=== PATIENT | female | born 1940 | race Caucasian/White ===

== ENCOUNTER 2016-06-15 15:30 | Inpatient (IN) | payer MEDICARE, OTHER ==
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
--- NOTE | ~2016-06-15 | DS ---
Discharge Summary [facility] [address] [place]. [address] NAME: YUNI ADAMSON : 44 STATUS : DIS IN PAT#: [id number] AGE: 75 ADM/REG DATE : 06/18/16 MR#: [id number] REPORT SERV DATE: 06/24/16 DICTATED BY: MELIA SCHUMACHER DATE: 06/21/16 REPORT STATUS : Draft TRANSCRIBED BY: MODL DATE: 06/21/16 ADMISSION DATE: 06/18/2016 DISCHARGE DATE: 06/21/2016 CHIEF COMPLAINT ON ADMISSION: Fever, chills, and right lower extremity pain. DISCHARGING DIAGNOSES: 1. Right lower extremity cellulitis with superficial abscess. 2. Intermittent fever. 3. Metastatic non-small cell lung cancer. 4. History of peripheral artery disease with bilateral iliac stents. 5. History of hypertension. 6. History of anxiety. 7. Mild intermittent confusion. HISTORY OF PRESENT ILLNESS: Please see full H and P by Dr. Reuben Hussein for initial details regarding presentation. HOSPITAL COURSE: 1. Right lower extremity cellulitis with superficial abscess. The patient was seen by Surgery. She had an I and D of the right lower extremity, subsequently placed wound VAC. The cultures have all been negative. She was initially placed on IV antibiotics. During the procedure, it was noted she had a purulent hematoma. Unfortunately, all cultures have been negative, which is difficult to guide further treatment. She was initially on broad-spectrum antibiotics given her fevers, which has been narrowed down to Augmentin. At the time of discharge, she is afebrile for greater than 24 hours. Given the superficial abscess and the improvement with antibiotics, unclear etiology of her intermittent fevers. Chest x-ray was done, which showed some edema, although no evidence of infection. Urinalysis was also done. Procalcitonin was 0.16. So, incentive spirometry was recommended as concerned she may have had some atelectasis given her prolonged stay in bed. This was reviewed with Infectious Disease. We will discharge her on Augmentin for an additional nine doses. 2. Fever. See above. The patient was cultured without any other source of infection, currently afebrile for greater than 24 hours. I have discussed with family at length. 3. Metastatic non-small cell lung cancer. Follow up with Dr. Burciaga as an outpatient. 4. Peripheral artery disease with history of stents. The patient continued on her home regimen. Follow up with her outpatient doctors. No current issues. She had a right lower extremity CT scan with contrast that did not show any evidence of complication. 5. History of hypertension. Her blood pressures have been low. This may be regarding an infection versus other etiology. At this time, she is on half of the dose of verapamil she was on before. This has been discussed with the patient and her daughter. Her need may change if she is an outpatient. She is to be followed closely and titrate medication as needed once she is recovered from her acute illness. 6. Anxiety along with intermittent confusion. I have discussed this with the family at length. She is on amitriptyline, Librium, and trazodone at night. Given her recent illnesses, hospitalization, new diagnosis of cancer, etc., I am concerned that her Discharge Summary [address] [place]. [address] NAME: YUNI ADAMSON ORLIN : 42 STATUS : DIS IN PAT#: [id number] AGE: 75 ADM/REG DATE : 06/18/16 MR#: [id number] REPORT SERV DATE: 06/24/16 DICTATED BY: MELIA SCHUMACHER DATE: 06/21/16 REPORT STATUS : Draft TRANSCRIBED BY: JAVAN DATE: 06/21/16 medication needs may change as her ability to metabolize the medication may be altered. At this point, I will recommend to decrease her dose of trazodone and monitor her closely as an outpatient for any need to titrate these medications to avoid side effects. 7. Right lower extremity pain. We will discharge her with tramadol to help control her pain, which is overall minor. However, she has just been lying in bed here. 8. Chronic hypoxic respiratory failure. The patient already had home oxygen set up through Oncology. She did have some minor wheezing during her hospitalization, will be given a short course of steroid to help with this. Suspect this may be due to some fluid, although given her history of COPD, she was given again a short course of p.o. steroids. PERTINENT CULTURES THIS ADMISSION: All cultures have been negative. DISCHARGE MEDICATIONS: The patient is on omeprazole 20 mg daily, Augmentin for an additional nine doses, chlordiazepoxide/amitriptyline 12.5/5 takes two tabs at bedtime, prednisone 40 mg for two days, verapamil 40 mg p.o. b.i.d., trazodone 75 mg at bedtime, Florastor, tramadol 50 mg q.4 hours p.r.n., Lasix 20 mg every other day, Colace daily, multivitamin. PERTINENT LABS: Prior to discharge, white blood cell count 5.8, hemoglobin 10.8, platelet count of 276. BMP is grossly unremarkable. Last chest x-ray prior to discharge, venous congestion with new interstitial prominence in lungs likely representing edema. OTHER PERTINENT IMAGING: CTA of the chest with impression. 1. No evidence for pulmonary embolism. No thoracic aortic aneurysm or dissection demonstrated. There is some fullness in the pulmonary artery, which may represent some underlying pulmonary hypertension. 2. Large masses in the right lower lobe and left upper lobe with multiple additional pulmonary nodules along with the minor fissure within the left lower lobe and at the right lung apex concerning for metastatic disease. 3. Bilateral paratracheal bulky left hilar lymphadenopathy. 4. Moderate right pleural effusion and trace left pleural effusion. 5. Dense consolidation atelectasis in the posterior basilar right lower lobe with some additional atelectatic changes in the right upper lobe. DISPOSITION: Home with Home Health for wound VAC and home oxygen. Followup will be with Dr. Garvin in the [facility] in one week and Dr. Burciaga for her lung cancer. Time spent on this discharge is greater than 30 minutes. This is discussed at length with the patient and her family. ERMIASK/JAVAN Melia Schumacher MD Discharge Summary [address] [address] NAME: YUNI ADAMSON : 42 STATUS : DIS IN PAT#: [id number] AGE: 75 ADM/REG DATE : 06/18/16 MR#: [id number] REPORT SERV DATE: 06/24/16 DICTATED BY: MELIA SCHUMACHER DATE: 06/21/16 REPORT STATUS : Draft TRANSCRIBED BY: MODL DATE: 06/21/16 / [id number] CC: MD Tristian Herrera M.D.
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
--- NOTE | ~2016-06-15 | CN ---
Consultation Report [facility] [address] [place]. [address] NAME: YUNI ADAMSON : 42 STATUS : ADM Devon PAT#: [id number] AGE: 75 ADM/REG DATE : 06/15/16 MR#: [id number] REPORT SERV DATE: 06/18/16 DICTATED BY: MOSES HERRERA DATE: 06/17/16 REPORT STATUS : Draft TRANSCRIBED BY: MODL DATE: 06/17/16 SURGICAL CONSULTATION DATE OF CONSULTATION: 06/17/2016 HISTORY OF PRESENT ILLNESS: This 75-year-old female presents with a history of fever and chills and right lower extremity pain. She states that she had trauma to her right lower extremity with a chair, and she had a red indurated area on the right lateral lower extremity. It apparently was a superficial abscess. Over the past two weeks, she had progressive pain. She was started on antibiotics and had progressive fever and chills and was admitted to the hospital. She has some mild shortness of breath that is chronic. She was diagnosed with metastatic squamous cell carcinoma of the lung, has been scheduled to begin palliative chemotherapy after improvement of this wound. I was asked to see the patient after she had a bedside procedure on 06/16/2016 by another physician with I and D of the abscess. On exam today, the patient has a right lateral lower extremity 3.5 cm open ulcer with necrotic slough extending into the subcutaneous tissue and muscle with hematoma. There is mild reina-wound erythema, without bulla, crepitance, or lymphangitis. There are no undrained abscesses. PAST MEDICAL HISTORY: As above with a history of a TIA. Chronic bilateral lower extremity venous hypertension. PAST SURGICAL HISTORY: Hysterectomy. ALLERGIES: BACTRIM CAUSES A RASH. SOCIAL HISTORY: The patient has 30 pack year history of smoking. She does not smoke actively. She denies alcohol or illicit drug usage. She lives at home. She has a supportive family. FAMILY HISTORY: Positive for hypertension and diabetes. No history of cancer. REVIEW OF SYSTEMS: No headache, blurred vision, dizziness, chest pain, shortness of breath, cough, dyspnea on exertion, syncope, palpitations, jaundice, or itching. She does have occasional cough. She has right leg swelling and redness. PHYSICAL EXAMINATION: GENERAL: A well-developed female, in no apparent distress. HEENT: Normocephalic and atraumatic. Sclerae anicteric. NECK: Supple. No adenopathy. CARDIOVASCULAR: Regular rate and rhythm without murmur. RESPIRATORY: Clear to auscultation. ABDOMEN: Soft, nondistended, nontender. No masses. BACK: No CVA tenderness. Consultation Report [place] [address] [address] NAME: YUNI ADAMSON : 44 STATUS : ADM Devon PAT#: [id number] AGE: 75 ADM/REG DATE : 06/15/16 MR#: [id number] REPORT SERV DATE: 06/18/16 DICTATED BY: MOSES HERRERA DATE: 06/17/16 REPORT STATUS : Draft TRANSCRIBED BY: JAVNA DATE: 06/17/16 EXTREMITIES: The patient has 1 to 2+ edema of the right lower extremity. She has bilateral lipodermatosclerosis. She has an open right lateral venous ulcer with necrotic slough with foul abscess. LABORATORY DATA: Please see hospital chart. IMAGING: CTA was just completed and is unresulted. ASSESSMENT: 1. Right lower extremity chronic venous ulcer with deep tissue injury. 2. History of chronic bilateral venous hypertension. 3. Stage IV squamous cell carcinoma of the lung, awaiting palliative therapy after wound healing. 4. Altered mental status. PLAN: At this time, I have discussed bedside debridement with the family, and they are in agreement. They are aware of the risks, including bleeding, infection, need for further surgical intervention and nonhealing. They are aware. I recommend a negative pressure wound therapy in conjunction with lower extremity compression. They are in agreement. /JAVAN Moses Herrera M.D. / [id number] CC: Mariza Yoo M.D. [facility]
--- NOTE | ~2016-06-15 | OP ---
Record Of [address] [place]. [address] NAME: YUNI ADAMSON ORLIN : 44 STATUS : ADM IN [facility]#: [id number] AGE: 75 ADM/REG DATE : 06/18/16 MR#: [id number] REPORT SERV DATE: 06/20/16 DICTATED BY: BRANDON LOVE DATE: 06/19/16 REPORT STATUS : Draft TRANSCRIBED BY: MODL DATE: 06/19/16 DATE OF PROCEDURE: 06/15/2016 PREOPERATIVE DIAGNOSIS: Right lower extremity abscess. POSTOPERATIVE DIAGNOSIS: Right lower extremity abscess. PROCEDURE: I and D of the right lower extremity abscess. SURGEON: Brandno Love M.D. RESIDENT SURGEON: Héctor Azul MD. ANESTHESIA: 1% lidocaine. PREPARATION: Betadine. ESTIMATED BLOOD LOSS: Less than 5 mL. DRAINS: None. COMPLICATIONS: None. FINDINGS: The patient had a right lower extremity abscess on the anterolateral portion of the lower leg. When a cruciate incision was made, purulent hematoma was expressed. This was left opened and addressed that appropriately. INDICATIONS FOR PROCEDURE: This is a 75-year-old female, who reportedly hit her right lower extremity on a bar stool two weeks ago and subsequently started having increased induration and purulent-like abscess formation. The patient presented to the emergency department. Surgery was consulted for this right lower extremity abscess. The above procedure was offered to the patient. Risks, benefits, and alternatives were explained. The patient expressed good understanding and wished to proceed forward with the procedure. DESCRIPTION OF PROCEDURE: The patient was kept in her bed. The surgery site was then prepped and draped in a standard fashion. 1% lidocaine was used to anesthetize the area. Cruciate incision was made through the abscess. Purulent hematoma was expressed. The fluid was cultured and sent off. The loculations of the abscess cavity were broken up with blunt dissection manually expressing purulent hematoma-like fluid. Standard sterile dressing was then applied. Sterile drapes were then broken down. DICTATED BY: MD LISSY Harper/JAVAN Record Of [address] [place]. [address] NAME: YUNI ADAMSON : 44 STATUS : ADM IN PAT#: [id number] AGE: 75 ADM/REG DATE : 06/18/16 MR#: [id number] REPORT SERV DATE: 06/20/16 DICTATED BY: BRANDON LOVE DATE: 06/19/16 REPORT STATUS : Draft TRANSCRIBED BY: MODL DATE: 06/19/16 Brandon Love M.D. / [id number] CC: Mariza Doyle M.D.
[2016-06-15 13:56] LABS: BASOPHILS 0.5 %; BASOPHILS ABSOLUTE 0.04 10/3/uL (0.0-0.16); EOSINOPHILS 3.3 %; EOSINOPHILS ABSOLUTE 0.27 10/3/uL (0.0-0.53); ER CBC TAT 0 Hrs 10 Mins; IMMATURE GRANULOCYTES 0.1 %; IMMATURE GRANULOCYTES ABSOLUTE 0.01 10/3/uL (0.0-0.11); LYMPHOCYTES 14.7 %; LYMPHOCYTES ABSOLUTE 1.21 10/3/uL (0.67-4.30); MEAN CORPUSCULAR HEMOGLOB 32.1 pg (26.0-34.0); MEAN PLATELET VOLUME 9.2 fL (9.2-13.0); MONOCYTES 11.3 %; MONOCYTES ABSOLUTE 0.93 10/3/uL (0.21-1.20); NEUTROPHILS 70.1 %; NEUTROPHILS ABSOLUTE 5.78 10/3/uL (2.02-8.40); PLATELET COUNT 271 10/3/uL (150-400); RBC DISTRIBUTION WIDTH 13.3 % (12.0-16.0); RED CELL COUNT 4.05 10/6/uL (4.0-5.6); WHITE BLOOD CELLS 8.2 10/3/uL (4.5-10.5)
[2016-06-15 13:57] LABS: HEMATOCRIT 38.5 % (36.0-48.0); MEAN CORPUSCULAR VOLUME 95.1 fL (80-100)
[2016-06-15 13:58] LABS: MANUAL DIFF NO %; MEAN CORPUS HGB CONC 33.8 g/dL (32.0-36.0)
[2016-06-15 14:00] LABS: ASCORBIC ACID (UR NOT ORDER) 40 (NEG); BILIRUBIN, URINE NEGATIVE (NEG); ER URINALYSIS TAT 0 Hrs 14 Mins; KETONE, URINE NEGATIVE (NEG); LEUKOCYTE ESTERASE(NOT OR NEG (NEG); NITRITE (URINE) NEG (NEG); WBC (NOT ORDERED) (RFLEX) < 1 (0-5)
[2016-06-15 14:11] LABS: A/G RATIO 0.6 (0.7-1.9); ALBUMIN 2.9 G/DL (3.5-5.0); BUN (BLOOD UREA NITROGEN) 11 MG/DL (6-23); CALCIUM, SERUM 9.2 MG/DL (8.5-10.4); CHLORIDE, SERUM 101 MMOL/L (96-112); CO2 (CARBON DIOXIDE) 29 MMOL/L (24-34); CREATININE 0.86 MG/DL (0.55-1.02); GFR AFRICAN AMERICAN 78 ML/MIN (>=60); GFR NON AFRICAN AMERICAN 67 ML/MIN (>=60); GLOBULIN 4.6 G/DL (2.5-4.1); GLUCOSE, SERUM 103 MG/DL (60-99); POTASSIUM, SERUM 3.8 MMOL/L (3.5-5.3); SGOT(AST) 14 U/L (5-40); SGPT(ALT) 18 U/L (5-65); SODIUM, SERUM 139 MMOL/L (135-148); TOTAL PROTEIN 7.5 G/DL (6.0-8.5)
[2016-06-15 14:12] LABS: ALKALINE PHOSPHATASE 118 U/L (45-117); TOTAL BILIRUBIN 0.4 MG/DL (0-1.2)
[~2016-06-15 15:30] MED LIST: AMITRIP PO; CALAN80 MG PO; CDP PO; CLEOCIN300 MG PO; L20 PO; PRILO PO; THERGRANM PO; TRAZODONE150 MG PO
[2016-06-15 21:09] LABS: BASOPHILS 0.5 %; BASOPHILS ABSOLUTE 0.04 10/3/uL (0.0-0.16); EOSINOPHILS 5.9 %; EOSINOPHILS ABSOLUTE 0.45 10/3/uL (0.0-0.53); HEMOGLOBIN 11.5 g/dL (12.0-16.0); IMMATURE GRANULOCYTES 0.1 %; IMMATURE GRANULOCYTES ABSOLUTE 0.01 10/3/uL (0.0-0.11); LYMPHOCYTES 13.7 %; LYMPHOCYTES ABSOLUTE 1.05 10/3/uL (0.67-4.30); MEAN CORPUS HGB CONC 32.9 g/dL (32.0-36.0); MEAN CORPUSCULAR HEMOGLOB 31.3 pg (26.0-34.0); MEAN CORPUSCULAR VOLUME 95.4 fL (80-100); MEAN PLATELET VOLUME 9.5 fL (9.2-13.0); MONOCYTES 12.8 %; MONOCYTES ABSOLUTE 0.98 10/3/uL (0.21-1.20); NEUTROPHILS ABSOLUTE 5.15 10/3/uL (2.02-8.40); PLATELET COUNT 280 10/3/uL (150-400); RBC DISTRIBUTION WIDTH 13.4 % (12.0-16.0); RED CELL COUNT 3.67 10/6/uL (4.0-5.6); WHITE BLOOD CELLS 7.7 10/3/uL (4.5-10.5)
[2016-06-15 21:19] LABS: MANUAL DIFF NO %
[2016-06-15 21:33] LABS: B NATRIURETIC PEPTIDE (BNP) 38.7 PG/ML (< 100.0)
[2016-06-15 21:34] LABS: A/G RATIO 0.6 (0.7-1.9); ALBUMIN 2.5 G/DL (3.5-5.0); ALKALINE PHOSPHATASE 108 U/L (45-117); BUN (BLOOD UREA NITROGEN) 9 MG/DL (6-23); CHLORIDE, SERUM 106 MMOL/L (96-112); CO2 (CARBON DIOXIDE) 28 MMOL/L (24-34); GFR AFRICAN AMERICAN 74 ML/MIN (>=60); GFR NON AFRICAN AMERICAN 63 ML/MIN (>=60); GLOBULIN 4.2 G/DL (2.5-4.1); GLUCOSE, SERUM 113 MG/DL (60-99); POTASSIUM, SERUM 3.8 MMOL/L (3.5-5.3); SGOT(AST) 11 U/L (5-40); SGPT(ALT) 13 U/L (5-65); SODIUM, SERUM 142 MMOL/L (135-148); TOTAL BILIRUBIN 0.2 MG/DL (0-1.2); TOTAL PROTEIN 6.7 G/DL (6.0-8.5); TROPONIN I <0.02 NG/ML (<0.05); ULTRASENSITIVE TSH 0.312 MCIU/ML (0.358-3.740)
[2016-06-15 21:35] LABS: CALCIUM, SERUM 8.1 MG/DL (8.5-10.4)
[2016-06-15 22:08] LABS: PROCALCITONIN <0.05 ng/mL (<0.5)
[2016-06-16 05:10] LABS: BASOPHILS 0.4 %; BASOPHILS ABSOLUTE 0.03 10/3/uL (0.0-0.16); EOSINOPHILS 5.4 %; EOSINOPHILS ABSOLUTE 0.37 10/3/uL (0.0-0.53); HEMATOCRIT 34.8 % (36.0-48.0); HEMOGLOBIN 11.6 g/dL (12.0-16.0); IMMATURE GRANULOCYTES 0.1 %; IMMATURE GRANULOCYTES ABSOLUTE 0.01 10/3/uL (0.0-0.11); LYMPHOCYTES 23.2 %; MANUAL DIFF NO %; MEAN CORPUS HGB CONC 33.3 g/dL (32.0-36.0); MEAN CORPUSCULAR HEMOGLOB 31.8 pg (26.0-34.0); MEAN CORPUSCULAR VOLUME 95.3 fL (80-100); MEAN PLATELET VOLUME 8.8 fL (9.2-13.0); MONOCYTES 10.9 %; MONOCYTES ABSOLUTE 0.75 10/3/uL (0.21-1.20); NEUTROPHILS ABSOLUTE 4.15 10/3/uL (2.02-8.40); PLATELET COUNT 259 10/3/uL (150-400); RBC DISTRIBUTION WIDTH 13.3 % (12.0-16.0); RED CELL COUNT 3.65 10/6/uL (4.0-5.6); WHITE BLOOD CELLS 6.9 10/3/uL (4.5-10.5)
[2016-06-16 05:23] LABS: BUN (BLOOD UREA NITROGEN) 9 MG/DL (6-23); CALCIUM, SERUM 8.5 MG/DL (8.5-10.4); CHLORIDE, SERUM 105 MMOL/L (96-112); CO2 (CARBON DIOXIDE) 29 MMOL/L (24-34); CREATININE 0.82 MG/DL (0.55-1.02); GFR AFRICAN AMERICAN 82 ML/MIN (>=60); GFR NON AFRICAN AMERICAN 71 ML/MIN (>=60); GLUCOSE, SERUM 92 MG/DL (60-99); PHOSPHORUS, SERUM 3.7 MG/DL (2.5-4.5); SODIUM, SERUM 141 MMOL/L (135-148)
[2016-06-16] MEDS ORDERED: FLORASTOR250 MG PO (12:26)
[2016-06-16] MEDS ORDERED: OMNICEF300 PO (12:28)
[2016-06-16] MEDS ORDERED: NORCO1 TA1 PO (12:29)
[2016-06-16] MEDS ORDERED: DSS PO (12:30)
[2016-06-17 05:55] LABS: BASOPHILS 0.4 %; BASOPHILS ABSOLUTE 0.04 10/3/uL (0.0-0.16); EOSINOPHILS 1.7 %; EOSINOPHILS ABSOLUTE 0.17 10/3/uL (0.0-0.53); HEMATOCRIT 34.2 % (36.0-48.0); HEMOGLOBIN 11.3 g/dL (12.0-16.0); IMMATURE GRANULOCYTES 0.3 %; IMMATURE GRANULOCYTES ABSOLUTE 0.03 10/3/uL (0.0-0.11); LYMPHOCYTES 13.8 %; LYMPHOCYTES ABSOLUTE 1.36 10/3/uL (0.67-4.30); MEAN CORPUSCULAR HEMOGLOB 31.7 pg (26.0-34.0); MEAN CORPUSCULAR VOLUME 95.8 fL (80-100); MEAN PLATELET VOLUME 9.3 fL (9.2-13.0); MONOCYTES 14.1 %; MONOCYTES ABSOLUTE 1.39 10/3/uL (0.21-1.20); NEUTROPHILS 69.7 %; NEUTROPHILS ABSOLUTE 6.84 10/3/uL (2.02-8.40); PLATELET COUNT 234 10/3/uL (150-400); RBC DISTRIBUTION WIDTH 13.1 % (12.0-16.0); RED CELL COUNT 3.57 10/6/uL (4.0-5.6)
[2016-06-17 06:08] LABS: WHITE BLOOD CELLS 9.8 10/3/uL (4.5-10.5)
[2016-06-17 06:09] LABS: MANUAL DIFF NO %
[2016-06-17 06:11] LABS: ALBUMIN 2.2 G/DL (3.5-5.0); DIRECT BILIRUBIN 0.2 MG/DL (0.0-0.4); INDIRECT BILIRUBIN(NOT ORDER) 0.6 MG/DL (0.1-0.9); TOTAL BILIRUBIN 0.8 MG/DL (0-1.2); TOTAL PROTEIN 6.1 G/DL (6.0-8.5)
[2016-06-17 14:32] LABS: INFLUENZA A SCREEN NEGATIVE (NEGATIVE); INFLUENZA B SCREEN NEGATIVE (NEGATIVE)
[2016-06-17 14:45] LABS: BUN (BLOOD UREA NITROGEN) 6 MG/DL (6-23); CALCIUM, SERUM 8.1 MG/DL (8.5-10.4); CHLORIDE, SERUM 101 MMOL/L (96-112); CO2 (CARBON DIOXIDE) 29 MMOL/L (24-34); CREATININE 0.78 MG/DL (0.55-1.02); GFR AFRICAN AMERICAN 87 ML/MIN (>=60); GFR NON AFRICAN AMERICAN 75 ML/MIN (>=60); GLUCOSE, SERUM 109 MG/DL (60-99); POTASSIUM, SERUM 3.8 MMOL/L (3.5-5.3); SODIUM, SERUM 137 MMOL/L (135-148)
[2016-06-18 04:42] LABS: BASOPHILS 0.3 %; BASOPHILS ABSOLUTE 0.03 10/3/uL (0.0-0.16); EOSINOPHILS 2.2 %; EOSINOPHILS ABSOLUTE 0.25 10/3/uL (0.0-0.53); HEMATOCRIT 32.6 % (36.0-48.0); HEMOGLOBIN 10.7 g/dL (12.0-16.0); IMMATURE GRANULOCYTES 0.2 %; IMMATURE GRANULOCYTES ABSOLUTE 0.02 10/3/uL (0.0-0.11); LYMPHOCYTES 8.8 %; MEAN CORPUS HGB CONC 32.8 g/dL (32.0-36.0); MEAN CORPUSCULAR HEMOGLOB 31.8 pg (26.0-34.0); MEAN CORPUSCULAR VOLUME 96.7 fL (80-100); MEAN PLATELET VOLUME 9.2 fL (9.2-13.0); MONOCYTES 14.4 %; MONOCYTES ABSOLUTE 1.63 10/3/uL (0.21-1.20); NEUTROPHILS 74.1 %; NEUTROPHILS ABSOLUTE 8.42 10/3/uL (2.02-8.40); PLATELET COUNT 207 10/3/uL (150-400); RBC DISTRIBUTION WIDTH 13.2 % (12.0-16.0); RED CELL COUNT 3.37 10/6/uL (4.0-5.6); WHITE BLOOD CELLS 11.4 10/3/uL (4.5-10.5)
[2016-06-18 04:43] LABS: MANUAL DIFF NO %
[2016-06-18 04:49] LABS: BUN (BLOOD UREA NITROGEN) 7 MG/DL (6-23); CALCIUM, SERUM 8.5 MG/DL (8.5-10.4); CHLORIDE, SERUM 101 MMOL/L (96-112); CO2 (CARBON DIOXIDE) 30 MMOL/L (24-34); CREATININE 0.78 MG/DL (0.55-1.02); GFR AFRICAN AMERICAN 87 ML/MIN (>=60); GFR NON AFRICAN AMERICAN 75 ML/MIN (>=60); GLUCOSE, SERUM 97 MG/DL (60-99); POTASSIUM, SERUM 3.7 MMOL/L (3.5-5.3); SODIUM, SERUM 138 MMOL/L (135-148)
[2016-06-19 03:44] LABS: HEMATOCRIT 33.4 % (36.0-48.0); HEMOGLOBIN 10.8 g/dL (12.0-16.0); MEAN CORPUS HGB CONC 32.3 g/dL (32.0-36.0); MEAN CORPUSCULAR HEMOGLOB 31.4 pg (26.0-34.0); MEAN CORPUSCULAR VOLUME 97.1 fL (80-100); MEAN PLATELET VOLUME 9.4 fL (9.2-13.0); PLATELET COUNT 205 10/3/uL (150-400); RBC DISTRIBUTION WIDTH 13.5 % (12.0-16.0); RED CELL COUNT 3.44 10/6/uL (4.0-5.6); WHITE BLOOD CELLS 8.7 10/3/uL (4.5-10.5)
[2016-06-19 03:45] LABS: MANUAL DIFF YES %
[2016-06-19 03:58] LABS: BUN (BLOOD UREA NITROGEN) 7 MG/DL (6-23); CALCIUM, SERUM 8.6 MG/DL (8.5-10.4); CHLORIDE, SERUM 102 MMOL/L (96-112); CO2 (CARBON DIOXIDE) 31 MMOL/L (24-34); CREATININE 0.85 MG/DL (0.55-1.02); GFR AFRICAN AMERICAN 79 ML/MIN (>=60); GFR NON AFRICAN AMERICAN 68 ML/MIN (>=60); GLUCOSE, SERUM 93 MG/DL (60-99); POTASSIUM, SERUM 4.2 MMOL/L (3.5-5.3); SODIUM, SERUM 139 MMOL/L (135-148)
[2016-06-19 04:04] LABS: EOSINOPHILS 2 %; EOSINOPHILS ABSOLUTE (CALC) 0.17 10/3/uL (0.0-0.53); LYMPHOCYTES 10 %; LYMPHOCYTES ABSOLUTE (CALC) 0.87 10/3/uL (0.67-4.30); MONOCYTES 9 %; MONOCYTES ABSOLUTE (CALC) 0.78 10/3/uL (0.21-1.20); NEUTROPHILS ABSOLUTE (CALC) 6.87 10/3/uL (2.02-8.40); SEGMENTED NEUTROPHIL (0) 79 %; TOTAL NUCLEATED CELLS 100
[2016-06-19 04:05] LABS: PLATELET ESTIMATE ADQ (ADEQUATE); RBC MORPHOLOGY NORM (NORMAL)
[2016-06-20 12:05] LABS: BASOPHILS 0.4 %; BASOPHILS ABSOLUTE 0.03 10/3/uL (0.0-0.16); EOSINOPHILS 3.8 %; EOSINOPHILS ABSOLUTE 0.28 10/3/uL (0.0-0.53); HEMATOCRIT 33.2 % (36.0-48.0); HEMOGLOBIN 10.5 g/dL (12.0-16.0); IMMATURE GRANULOCYTES 0.1 %; IMMATURE GRANULOCYTES ABSOLUTE 0.01 10/3/uL (0.0-0.11); LYMPHOCYTES 11.7 %; LYMPHOCYTES ABSOLUTE 0.87 10/3/uL (0.67-4.30); MEAN CORPUS HGB CONC 31.6 g/dL (32.0-36.0); MEAN CORPUSCULAR HEMOGLOB 31.3 pg (26.0-34.0); MEAN CORPUSCULAR VOLUME 99.1 fL (80-100); MONOCYTES 16.2 %; NEUTROPHILS 67.8 %; NEUTROPHILS ABSOLUTE 5.03 10/3/uL (2.02-8.40); RBC DISTRIBUTION WIDTH 13.4 % (12.0-16.0); RED CELL COUNT 3.35 10/6/uL (4.0-5.6); WHITE BLOOD CELLS 7.4 10/3/uL (4.5-10.5)
[2016-06-20 12:11] LABS: MANUAL DIFF NO %; PLATELET COUNT 267 10/3/uL (150-400)
[2016-06-20 16:58] LABS: ASCORBIC ACID (UR NOT ORDER) NEG (NEG); BILIRUBIN, URINE NEGATIVE (NEG); KETONE, URINE NEGATIVE (NEG); LEUKOCYTE ESTERASE(NOT OR NEG (NEG); WBC (NOT ORDERED) (RFLEX) 1 (0-5)
[2016-06-21 05:10] LABS: BASOPHILS 0.2 %; BASOPHILS ABSOLUTE 0.01 10/3/uL (0.0-0.16); EOSINOPHILS 0 %; HEMATOCRIT 32.7 % (36.0-48.0); HEMOGLOBIN 10.8 g/dL (12.0-16.0); IMMATURE GRANULOCYTES 0.3 %; IMMATURE GRANULOCYTES ABSOLUTE 0.02 10/3/uL (0.0-0.11); LYMPHOCYTES 6.3 %; LYMPHOCYTES ABSOLUTE 0.37 10/3/uL (0.67-4.30); MEAN CORPUSCULAR HEMOGLOB 32.1 pg (26.0-34.0); MEAN CORPUSCULAR VOLUME 97.3 fL (80-100); MONOCYTES 14.2 %; MONOCYTES ABSOLUTE 0.83 10/3/uL (0.21-1.20); PLATELET COUNT 276 10/3/uL (150-400); RBC DISTRIBUTION WIDTH 13.1 % (12.0-16.0); RED CELL COUNT 3.36 10/6/uL (4.0-5.6); WHITE BLOOD CELLS 5.8 10/3/uL (4.5-10.5)
[2016-06-21 05:15] LABS: MANUAL DIFF NO %
[2016-06-21 05:18] LABS: A/G RATIO 0.4 (0.7-1.9); ALKALINE PHOSPHATASE 87 U/L (45-117); BUN (BLOOD UREA NITROGEN) 8 MG/DL (6-23); CALCIUM, SERUM 8.8 MG/DL (8.5-10.4); CHLORIDE, SERUM 99 MMOL/L (96-112); CO2 (CARBON DIOXIDE) 31 MMOL/L (24-34); CREATININE 0.58 MG/DL (0.55-1.02); GFR AFRICAN AMERICAN 106 ML/MIN (>=60); GFR NON AFRICAN AMERICAN 91 ML/MIN (>=60); GLOBULIN 4.5 G/DL (2.5-4.1); GLUCOSE, SERUM 109 MG/DL (60-99); POTASSIUM, SERUM 4.6 MMOL/L (3.5-5.3); SGOT(AST) 13 U/L (5-40); SGPT(ALT) 13 U/L (5-65); SODIUM, SERUM 138 MMOL/L (135-148); TOTAL BILIRUBIN 0.4 MG/DL (0-1.2); TOTAL PROTEIN 6.5 G/DL (6.0-8.5)
[2016-06-21] MEDS ORDERED: AUG875 PO (10:46)
[2016-06-21] MEDS ORDERED: P20 PO (10:47)
[2016-06-21] MEDS ORDERED: ULTRAM50 PO (10:48)
[2016-06-21] MEDS ORDERED: T PO (11:05)
[2016-06-21] MEDS ORDERED: CALAN40 MG PO (11:05)
== END 2016-06-21 14:49 | disposition home health service (06) | DRG 579 ==
LOC: ER 15:30 → 4SO 15:56 → CDU1 16:05 → CDU2 23:44 → 4EA 06-16 18:32
PROVIDERS: Emergency Medicine; Internal Medicine; Nurse Practitioner Family
PROC: 0J9N0ZZ Drainage of Right Lower Leg Subcutaneous Tissue and Fascia, Open Approach (ICD-10-PCS; principal; 2016-06-15)
DX: L03.115 Cellulitis of right lower limb (principal); G92 Toxic encephalopathy; C34.90 Malignant neoplasm of unspecified part of unspecified bronchus or lung; I73.9 Peripheral vascular disease, unspecified
CPT/HCPCS: 70450; 71010; 71275; 73701-RT; 80048; 80053; 80076; 81001; 82140; 82962; 83605; 83615; 83735; 83880; 84100; 84145; 84443; 84484; 85025; 87040; 87070; 87205; 87641; 87804; 93005; 94640; 96374; 99285; A9270-GY; J0690; J0692; J1170; J1940; J2405; J3370; Q9967

== ENCOUNTER 2016-06-24 20:04 | Inpatient (IN) | payer MEDICARE, OTHER ==
--- NOTE | ~2016-06-24 | DS ---
Discharge Summary [facility] [address] [facility] [place]. [address] NAME: YUNI ADAMSON : 44 STATUS : DIS IN PAT#: [id number] AGE: 75 ADM/REG DATE : 06/25/16 MR#: [id number] REPORT SERV DATE: 06/29/16 DICTATED BY: MAYRA ERWIN II DATE: 06/28/16 REPORT STATUS : Draft TRANSCRIBED BY: MODL DATE: 06/28/16 ADMISSION DATE: 06/25/2016 DISCHARGE DATE: 06/28/2016 DISCHARGE DIAGNOSES: 1. Acute exacerbation of chronic obstructive pulmonary disease. 2. Acute on chronic hypoxic respiratory failure. 3. Questionable pulmonary embolism. 4. Acute atrial fibrillation. 5. Right lower extremity wound with wound VAC. 6. Non-small cell lung carcinoma followed by Dr. Burciaga. 7. Generalized debility. 8. Acute metabolic encephalopathy. CONSULTS: Dr. Hill with Oncology. BRIEF HISTORY OF PRESENT ILLNESS: The patient is a 75-year-old female with the above history, who presented to [facility] due to shortness of breath, fevers, and altered mental status. For detailed history and physical examination, please see Dr. Lan's note from 06/25/2016. HOSPITAL COURSE: On admission, the patient had a CTA which was initially read as having acute pulmonary embolus in the left lower lobe segmental branch of the pulmonary artery and right lower lobe pulmonary artery; however, this was later read by Dr. Barney as no evidence of PE. Manifestations of multiple pulmonary metastases. There was a large right effusion. The preliminary report describing embolus in the left lower segment; however, he says this is a defect in the image and appears to be somewhat eccentric small and may be suggests and may represent some chronic old PE. The PE in the right lower lobe is reported as unlikely a true finding. Lower extremity Dopplers were negative for clots. Given the patient also had acute AFib, the dispute about anticoagulation was moot and she was started on Coumadin given her 100 dollar co-pay for Eliquis. Otherwise, she continues to improve. She was placed on prednisone and nebulizers for COPD. Currently, she is on her chronic supplemental dose of 2 L by nasal cannula. Otherwise, she has a wound VAC on her right lower extremity wound which appears to be healing. Dr. Hill recommended follow with Dr. Burciaga after she finishes rehabilitation at [facility] for which she will be discharged today. DISCHARGE MEDICATIONS: 1. Amitriptyline/chlordiazepoxide two tablets p.o. at bedtime. 2. Multivitamin without minerals. 3. Prilosec 20 mg p.o. daily. 4. Trazodone 75 mg p.o. at bedtime. 5. Verapamil 40 mg p.o. b.i.d. 6. Coumadin 5 mg p.o. every 1800. 7. Tylenol 650 mg p.o. every six hours p.r.n. 8. Lasix 20 mg p.o. every 48 hours. 9. Ultram 50 mg p.o. every four hours p.r.n. Discharge Summary [address] [address] NAME: YUNI ADAMSON : 44 STATUS : DIS IN PAT#: [id number] AGE: 75 ADM/REG DATE : 06/25/16 MR#: [id number] REPORT SERV DATE: 06/29/16 DICTATED BY: MAYRA ERWIN II DATE: 06/28/16 REPORT STATUS : Draft TRANSCRIBED BY: JAVAN DATE: 06/28/16 10.Albuterol HFA two puffs every four hours p.r.n. shortness of breath or wheezing. DISCHARGE INSTRUCTIONS: As per above, the patient was discharged to [facility] and follow up with Dr. Burciaga after rehab. LAMIN/JAVAN Mayra Erwin II, MD / [id number] CC: MD Tristian Gagnon II, M.D.
--- NOTE | ~2016-06-24 | HP ---
History And Physical [id number] [place]. [address] NAME: YUNI KENNY : 44 STATUS : REG ER PAT#: [id number] AGE: 75 ADM/REG DATE : 06/24/16 MR#: [id number] REPORT SERV DATE: 06/25/16 DICTATED BY: MAYRA STANTON DATE: 06/25/16 REPORT STATUS : Draft TRANSCRIBED BY: MODL DATE: 06/25/16 DATE OF ADMISSION: 06/24/2016 POINT OF ENTRY: [facility] Emergency Department. PRIMARY CARE PHYSICIAN: Tristian Allen M.D. PRIMARY ONCOLOGIST: Ryne Burciaga MD. PRIMARY WOUND SURGEON: Moses Garvin M.D. CHIEF COMPLAINT: Fevers, altered mental status, and weakness. HISTORY OF PRESENT ILLNESS: Ms. Kenny is a 75-year-old female with a history of stage IV non-small cell lung cancer as well as osteoarthritis, COPD on 2 L by nasal cannula as well as peripheral arterial disease, peripheral vascular disease, who presents to the emergency room today with reports of persistent confusion as well as weakness and altered mental status. The patient was recently admitted to the Hospitalist Service from June 18 through June 21 for right lower extremity cellulitis with superficial abscess status post incision and drainage requiring wound VAC placement. During her hospital stay, she had some immune fevers, which alternative source of infection was unable to be determined. Family also reports that during her hospital stay, she started to develop confusion and this was still present at the time of discharge on June 21. She was discharged on a course of antibiotics to complete her treatment for her right lower extremity cellulitis and was to follow up with Dr. Garvin in clinic on Friday of this week. Daughter states that since her discharge, her confusion has remained persistent. She denies any obvious visual or auditory hallucinations. The patient states that she is disoriented and does not provide any reliable history. Daughter also states that she has had very poor oral intake of primarily food, but also liquids. She noted a fever of 100.8 degrees Fahrenheit today prompting her presentation to the emergency department. Home health came to see the patient today and was very concerned that the patient had pneumonia and recommended that she also be evaluated in the emergency department. The patient states that she has had some slight worsening of her shortness of breath. She denies any chest pain. Denies any pain anywhere else. Has no other complaints at this time, but does agree with her daughter's assessment that she is confused. Initial evaluation in the emergency department for a chest x-ray that shows bilateral pulmonary masses with her largely unchanged as well as bilateral pleural effusions also largely unchanged. CTA of the chest was undertaken, which showed left lower lobe as well as right lower lobe segmental pulmonary embolisms without any evidence of focal consolidation or infiltrate concerning for pneumonia. EKG did show some atrial fibrillation with RVR, but now the patient appears to be in normal sinus rhythm. Labs otherwise were unremarkable. CT History And Physical [address] [address] NAME: YUNI KENNY : 44 STATUS : REG ER PAT#: [id number] AGE: 75 ADM/REG DATE : 06/24/16 MR#: [id number] REPORT SERV DATE: 06/25/16 DICTATED BY: MAYRA STANTON DATE: 06/25/16 REPORT STATUS : Draft TRANSCRIBED BY: JAVAN DATE: 06/25/16 scan of the brain was unremarkable. She was subsequently admitted to the Hospital Service for further evaluation and management. REVIEW OF SYSTEMS: Comprehensive review of systems otherwise negative unless listed in history of present illness. PAST MEDICAL HISTORY: 1. Stage IV non-small cell lung cancer. 2. Peripheral arterial disease and peripheral vascular disease, status post bilateral iliac stenting. 3. Gastroesophageal reflux disease. 4. Osteoarthritis. 5. COPD on 2 L by nasal cannula. PAST SURGICAL HISTORY: 1. Abdominal hysterectomy. 2. Right shoulder surgery. 3. Right total knee. 4. Bilateral iliac stents. 5. Bladder repair surgery. 6. Rectocele. ALLERGIES: CODEINE, FENTANYL, AND BACTRIM. HOME MEDICATIONS: 1. Tylenol 650 mg every six hours p.r.n. 2. Augmentin 825 mg b.i.d. 3. Amitriptyline with chlordiazepoxide two tablets at bedtime. 4. Lasix 20 mg every four hours. 5. Multivitamin tablet daily. 6. Omeprazole 20 mg daily. 7. Prednisone 40 mg daily. 8. Tramadol 50 mg every four hours. 9. Trazodone 75 mg at bedtime. 10.Verapamil 40 mg b.i.d. SOCIAL HISTORY: She is a former smoker, has about a [id number] smoking history. Denies any alcohol or illicits. Lives with her daughter who is at bedside. FAMILY MEDICAL HISTORY: Hypertension. LABS AND IMAGIN. White count 6.8, hemoglobin is 14.0, hematocrit is 41.5, platelet count 387. 2. Sodium is 136, potassium 3.7, chloride 93, carbon dioxide 31, BUN 8, creatinine 0.7, glucose is 94, calcium is 8.9, protein is 8.1, albumin 2.7, bili is 0.4, ALT 23, AST 21, alk phos is 95. History And Physical [address] [address] NAME: YUNI KENNY : 44 STATUS : REG ER PAT#: [id number] AGE: 75 ADM/REG DATE : 06/24/16 MR#: [id number] REPORT SERV DATE: 06/25/16 DICTATED BY: MAYRA STANTON DATE: 06/25/16 REPORT STATUS : Draft TRANSCRIBED BY: JAVAN DATE: 06/25/16 3. Lactic acid 0.7. 4. Urinalysis: Specific gravity is 1.015, no evidence of any infection. 5. Chest x-ray per my review shows bilateral pulmonary masses as well as a right greater than left pleural effusions, largely unchanged compared to prior chest x-ray. 6. EKG per review shows atrial fibrillation with RVR. No evidence of any acute ischemia or infarction. 7. CT of the chest shows left lower lobe segmental and right lower lobe pulmonary arterial or pulmonary embolisms as well as multiple pulmonary masses as well as a moderate right- sided pleural effusion. PHYSICAL EXAMINATION: VITAL SIGNS: Temperature is 98.9 degrees Fahrenheit, pulse is 121, respirations 22, satting 95% on 2 L of nasal cannula, blood pressure 120/93. GENERAL: The patient is awake, alert and in no acute distress. Resting comfortably. She is a chronically ill-appearing, elderly female in no acute distress. Daughter is at bedside. HEENT: Atraumatic and normocephalic. Slightly dry mucous membranes. Pupils are equal, round, reactive to light and accommodation. Extraocular eye movements intact. No scleral icterus. NECK: No jugular venous distention. No carotid bruits. CARDIAC: Regular rate and rhythm. No murmurs, rubs, or gallops. Normal S1, S2. LUNGS: On oxygen, but in no respiratory distress. Does have some diffuse inspiratory wheezes in all lung [place], but with some decreased breath sounds right greater than left lung base, but no rhonchi or crackles appreciated. ABDOMEN: Soft, nontender, nondistended. Good bowel sounds. No rebound, guarding, or rigidity. EXTREMITIES: Warm and perfused. No cyanosis, clubbing, or edema. She does have a wound VAC in place over the right lower extremity on the lateral side. SKIN: Warm and dry except for noted above. PSYCHIATRIC: Affect is appropriate. NEUROLOGIC: Alert and oriented x3. She is able to tell me the name of daughter who is at bedside. Her birthday as well as who is the President, but still states she is confused. Cranial nerves II through XII are grossly intact. Speech is normal. Gait was not assessed. ASSESSMENT AND PLAN: Ms. Kenny is a 75-year-old female, brought to the emergency room today for reports of persistent confusion as well as fevers and weakness and found to have evidence of acute bilateral pulmonary embolism as well as acute chronic obstructive pulmonary disease exacerbation. PROBLEM LIST: 1. Acute bilateral pulmonary embolisms. 2. Acute COPD exacerbation. 3. Paroxysmal atrial fibrillation. 4. Stage IV non-small cell lung cancer. 5. Encephalopathy. 6. Right lower extremity venous ulcer. History And Physical [address] [address] NAME: YUNI KENNY : 44 STATUS : REG ER PAT#: [id number] AGE: 75 ADM/REG DATE : 06/24/16 MR#: [id number] REPORT SERV DATE: 06/25/16 DICTATED BY: MAYRA STANTON DATE: 06/25/16 REPORT STATUS : Draft TRANSCRIBED BY: MODYuri DATE: 06/25/16 PLAN: 1. Acute bilateral pulmonary embolisms. We will place the patient on IV heparin infusion. Checking troponin as well as echocardiogram to evaluate for any RV strain. I suspect that the patient's major risk factor is her metastatic lung cancer as well as recent hospitalization for her right lower extremity venous ulcer. 2. Acute COPD exacerbation. Place the patient on frequent bronchodilators, antibiotics as well as low-dose prednisone. Given concern for encephalopathy and its potential contribution, she is on her baseline oxygen saturation. 3. Encephalopathy. Family is concerned that this started during her previous hospitalization, suggestive of possible delirium. We will attempt to limit her sedating medications first by holding her amitriptyline. We will place the patient on low-dose prednisone for acute COPD exacerbation as well as try to limit any sedating pain medications. A CT scan of the brain was unremarkable as was the urinalysis. We will check ammonia level, thyroid function studies as well as vitamin as well as an ABG given history of COPD. 4. Dehydration. Provide IV fluid hydration. 5. Right lower extremity venous ulcer. Continue wound VAC care. She will be placed on continue antibiotics for this as well as her acute COPD exacerbation. We will consult Dr. Garvin for assistance and management with a wound VAC. 6. Metastatic lung cancer per Oncology. 7. DVT prophylaxis. The patient is to be on therapeutic anticoagulation. CODE STATUS: The patient wished to be full code. JCB/MODL Mayra Stanton MD / [id number] CC: Tristian Allen M.D. MD Moses Hannon M.D.
[~2016-06-24 20:04] MED LIST changes: +AUG875 PO; +CALAN40 MG PO; +DSS PO; +FLORASTOR250 MG PO; +NORCO1 TA1 PO; +OMNICEF300 PO; +P20 PO; +T PO; +ULTRAM50 PO
[2016-06-24 20:49] LABS: BASOPHILS 0.3 %; BASOPHILS ABSOLUTE 0.02 10/3/uL (0.0-0.16); EOSINOPHILS 0.3 %; EOSINOPHILS ABSOLUTE 0.02 10/3/uL (0.0-0.53); ER CBC TAT 0 Hrs 09 Mins; IMMATURE GRANULOCYTES 0.1 %; IMMATURE GRANULOCYTES ABSOLUTE 0.01 10/3/uL (0.0-0.11); LYMPHOCYTES 22.8 %; LYMPHOCYTES ABSOLUTE 1.56 10/3/uL (0.67-4.30); MEAN CORPUS HGB CONC 33.7 g/dL (32.0-36.0); MEAN CORPUSCULAR HEMOGLOB 32.4 pg (26.0-34.0); MEAN CORPUSCULAR VOLUME 96.1 fL (80-100); MEAN PLATELET VOLUME 8.7 fL (9.2-13.0); MONOCYTES 3.7 %; MONOCYTES ABSOLUTE 0.25 10/3/uL (0.21-1.20); NEUTROPHILS 72.8 %; NEUTROPHILS ABSOLUTE 4.97 10/3/uL (2.02-8.40); RBC DISTRIBUTION WIDTH 13.4 % (12.0-16.0); WHITE BLOOD CELLS 6.8 10/3/uL (4.5-10.5)
[2016-06-24 20:51] LABS: HEMATOCRIT 41.5 % (36.0-48.0); MANUAL DIFF NO %; PLATELET COUNT 387 10/3/uL (150-400); RED CELL COUNT 4.32 10/6/uL (4.0-5.6)
[2016-06-24 21:01] LABS: A/G RATIO 0.5 (0.7-1.9); ALBUMIN 2.7 G/DL (3.5-5.0); ALKALINE PHOSPHATASE 95 U/L (45-117); BUN (BLOOD UREA NITROGEN) 8 MG/DL (6-23); CALCIUM, SERUM 8.9 MG/DL (8.5-10.4); CHLORIDE, SERUM 93 MMOL/L (96-112); CO2 (CARBON DIOXIDE) 31 MMOL/L (24-34); CREATININE 0.77 MG/DL (0.55-1.02); GFR AFRICAN AMERICAN 89 ML/MIN (>=60); GFR NON AFRICAN AMERICAN 77 ML/MIN (>=60); GLOBULIN 5.4 G/DL (2.5-4.1); GLUCOSE, SERUM 94 MG/DL (60-99); POTASSIUM, SERUM 3.7 MMOL/L (3.5-5.3); SGOT(AST) 21 U/L (5-40); SGPT(ALT) 23 U/L (5-65); SODIUM, SERUM 136 MMOL/L (135-148); TOTAL BILIRUBIN 0.4 MG/DL (0-1.2); TOTAL PROTEIN 8.1 G/DL (6.0-8.5)
[2016-06-25] MEDS ORDERED: T PO (00:20)
[2016-06-25] MEDS ORDERED: CDP PO (00:21)
[2016-06-25] MEDS ORDERED: AMITRIP PO (00:21)
[2016-06-25] MEDS ORDERED: AUG875 PO (00:21)
[2016-06-25] MEDS ORDERED: PRILO PO (00:22)
[2016-06-25] MEDS ORDERED: MULTIVIT/MIN PO (00:22)
[2016-06-25] MEDS ORDERED: L20 PO (00:22)
[2016-06-25] MEDS ORDERED: P20 PO (00:23)
[2016-06-25] MEDS ORDERED: CALAN40 MG PO (00:24)
[2016-06-25] MEDS ORDERED: ULTRAM50 PO (00:24)
[2016-06-25] MEDS ORDERED: TRAZODONE150 MG PO (00:24)
[2016-06-25 00:37] LABS: ASCORBIC ACID (UR NOT ORDER) NEG (NEG); BILIRUBIN, URINE NEGATIVE (NEG); ER URINALYSIS TAT 0 Hrs 00 Mins; KETONE, URINE 20 MG/DL (NEG); LEUKOCYTE ESTERASE(NOT OR NEG (NEG); NITRITE (URINE) NEG (NEG); WBC (NOT ORDERED) (RFLEX) 1 (0-5)
[2016-06-25 07:55] LABS: CARBOXYHEMOGLOBIN 1.3 % (0-3); HCO3 (ACTUAL BICARBONATE) 28.4 MEQ/L (23-27); HEMOBLOGIN CONTENT 13.3 G/DL (12-16); INSTRUMENT SERIAL # 8087; METHEMOGLOBIN 0.2 % (0-3); O2 CONTENT 17.8 VOL% (18-24); PCO2 (CO2 TENSION) 38 MMHG (35-45); PO2 (O2 TENSION) 80 MMHG (79-93); SAMPLE Arterial; pH 7.49 (7.37-7.43)
[2016-06-25 07:56] LABS: DEVICE NC
[2016-06-25 09:28] LABS: FREE T4 1.65 NG/DL (0.76-1.46); PHOSPHORUS, SERUM 3.3 MG/DL (2.5-4.5); TROPONIN I <0.02 NG/ML (<0.05)
[2016-06-25 09:30] LABS: ULTRASENSITIVE TSH 0.525 MCIU/ML (0.358-3.740)
[2016-06-26 07:28] LABS: BASOPHILS 0.4 %; BASOPHILS ABSOLUTE 0.02 10/3/uL (0.0-0.16); EOSINOPHILS 0.8 %; EOSINOPHILS ABSOLUTE 0.04 10/3/uL (0.0-0.53); HEMOGLOBIN 11.4 g/dL (12.0-16.0); IMMATURE GRANULOCYTES 0.2 %; IMMATURE GRANULOCYTES ABSOLUTE 0.01 10/3/uL (0.0-0.11); LYMPHOCYTES ABSOLUTE 1.17 10/3/uL (0.67-4.30); MEAN CORPUS HGB CONC 32.6 g/dL (32.0-36.0); MEAN CORPUSCULAR HEMOGLOB 31.7 pg (26.0-34.0); MEAN CORPUSCULAR VOLUME 97.2 fL (80-100); MEAN PLATELET VOLUME 8.6 fL (9.2-13.0); MONOCYTES 16.4 %; NEUTROPHILS 58.2 %; NEUTROPHILS ABSOLUTE 2.83 10/3/uL (2.02-8.40); PLATELET COUNT 294 10/3/uL (150-400); RBC DISTRIBUTION WIDTH 13.5 % (12.0-16.0); WHITE BLOOD CELLS 4.9 10/3/uL (4.5-10.5)
[2016-06-26 07:29] LABS: MANUAL DIFF NO %
[2016-06-26 07:43] LABS: BUN (BLOOD UREA NITROGEN) 11 MG/DL (6-23); CHLORIDE, SERUM 101 MMOL/L (96-112); CO2 (CARBON DIOXIDE) 30 MMOL/L (24-34); CREATININE 0.72 MG/DL (0.55-1.02); GFR AFRICAN AMERICAN 96 ML/MIN (>=60); GFR NON AFRICAN AMERICAN 83 ML/MIN (>=60); GLUCOSE, SERUM 86 MG/DL (60-99); POTASSIUM, SERUM 3.7 MMOL/L (3.5-5.3); SODIUM, SERUM 139 MMOL/L (135-148)
[2016-06-26 17:12] LABS: INTERNATIONAL NORMAL RATI 1.1 UNITS (-)
[2016-06-26 17:14] LABS: PROTIME (NOT ORD) 13.8 SEC (12.0-14.5)
[2016-06-27 06:56] LABS: INTERNATIONAL NORMAL RATI 1.1 UNITS (-); PROTIME (NOT ORD) 14.3 SEC (12.0-14.5)
[2016-06-28 08:01] LABS: INTERNATIONAL NORMAL RATI 1.3 UNITS (-); PROTIME (NOT ORD) 15.6 SEC (12.0-14.5)
== END 2016-06-28 18:13 | DRG 189 ==
LOC: ER 20:04 → 6NO 06-25 04:50
PROVIDERS: Emergency Medicine; Internal Medicine; Nurse Practitioner Acute Care
DX: J96.21 Acute and chronic respiratory failure with hypoxia (principal); G93.41 Metabolic encephalopathy; L97.919 Non-pressure chronic ulcer of unspecified part of right lower leg with unspecified severity; C79.9 Secondary malignant neoplasm of unspecified site; I48.0 Paroxysmal atrial fibrillation; C34.90 Malignant neoplasm of unspecified part of unspecified bronchus or lung; J90 Pleural effusion, not elsewhere classified; J44.1 Chronic obstructive pulmonary disease with (acute) exacerbation; E86.0 Dehydration; I73.9 Peripheral vascular disease, unspecified; M19.90 Unspecified osteoarthritis, unspecified site; K21.9 Gastro-esophageal reflux disease without esophagitis; Z87.01 Personal history of pneumonia (recurrent); Z95.828 Presence of other vascular implants and grafts; Z90.710 Acquired absence of both cervix and uterus; Z96.651 Presence of right artificial knee joint; Z88.5 Allergy status to narcotic agent; Z88.2 Allergy status to sulfonamides; Z87.891 Personal history of nicotine dependence; Z86.711 Personal history of pulmonary embolism
CPT/HCPCS: 36600; 70450; 71010; 71275; 80048; 80053; 81001; 82140; 82805; 83605; 83735; 84100; 84145; 84439; 84443; 84484; 85025; 85610; 85730; 87040; 93005; 93306; 93970; 94640; 96365; 97162-GP; 99285; A9270-GY; G8978-CK-GP; G8979-CJ-GP; J1170; J1956; Q9967

== ENCOUNTER 2016-07-16 21:22 | Emergency (ER) | payer MEDICARE, OTHER ==
[~2016-07-16 21:22] MED LIST changes: +MULTIVIT/MIN PO
[2016-07-16 22:35] LABS: BASOPHILS 0.4 %; BASOPHILS ABSOLUTE 0.03 10/3/uL (0.0-0.16); EOSINOPHILS 4.6 %; EOSINOPHILS ABSOLUTE 0.32 10/3/uL (0.0-0.53); HEMATOCRIT 34.3 % (36.0-48.0); HEMOGLOBIN 11.3 g/dL (12.0-16.0); IMMATURE GRANULOCYTES 0.1 %; IMMATURE GRANULOCYTES ABSOLUTE 0.01 10/3/uL (0.0-0.11); LYMPHOCYTES 18.3 %; LYMPHOCYTES ABSOLUTE 1.27 10/3/uL (0.67-4.30); MEAN CORPUS HGB CONC 32.9 g/dL (32.0-36.0); MEAN CORPUSCULAR HEMOGLOB 30.5 pg (26.0-34.0); MONOCYTES 10.7 %; MONOCYTES ABSOLUTE 0.74 10/3/uL (0.21-1.20); NEUTROPHILS 65.9 %; NEUTROPHILS ABSOLUTE 4.56 10/3/uL (2.02-8.40); PLATELET COUNT 262 10/3/uL (150-400); RBC DISTRIBUTION WIDTH 13.3 % (12.0-16.0); RED CELL COUNT 3.71 10/6/uL (4.0-5.6)
[2016-07-16 22:38] LABS: ER CBC TAT 0 Hrs 11 Mins; MANUAL DIFF NO %; MEAN CORPUSCULAR VOLUME 92.5 fL (80-100); WHITE BLOOD CELLS 6.9 10/3/uL (4.5-10.5)
[2016-07-16 22:53] LABS: LACTATE 0.6 MMOL/L (0.3-2.4)
[2016-07-16 22:58] LABS: BUN (BLOOD UREA NITROGEN) 11 MG/DL (6-23); CALCIUM, SERUM 8.9 MG/DL (8.5-10.4); CHLORIDE, SERUM 100 MMOL/L (96-112); CO2 (CARBON DIOXIDE) 30 MMOL/L (24-34); CREATININE 0.76 MG/DL (0.55-1.02); GFR AFRICAN AMERICAN 90 ML/MIN (>=60); GFR NON AFRICAN AMERICAN 78 ML/MIN (>=60); GLUCOSE, SERUM 93 MG/DL (60-99); POTASSIUM, SERUM 3.6 MMOL/L (3.5-5.3); SODIUM, SERUM 138 MMOL/L (135-148)
[2016-07-16 23:11] LABS: PROCALCITONIN <0.05 ng/mL (<0.5)
== END 2016-07-16 23:55 | disposition home or self-care (01) ==
LOC: ER 21:22
PROVIDERS: Emergency Medicine
DX: L97.819 Non-pressure chronic ulcer of other part of right lower leg with unspecified severity (principal); J44.9 Chronic obstructive pulmonary disease, unspecified; K21.9 Gastro-esophageal reflux disease without esophagitis; Z85.118 Personal history of other malignant neoplasm of bronchus and lung; Z87.891 Personal history of nicotine dependence; Z88.5 Allergy status to narcotic agent; Z88.2 Allergy status to sulfonamides; Z88.8 Allergy status to other drugs, medicaments and biological substances; Z79.899 Other long term (current) drug therapy
CPT/HCPCS: 71010; 80048; 83605; 84145; 85025; 87040; 99285; A9270-GY